=== PATIENT | female | born 1960 | race Caucasian/White ===

== ENCOUNTER 2017-08-12 21:38 | Inpatient (IN) | payer OTHER ==
[2017-08-12 22:28] LABS: CHLORIDE,CL 86 mmol/L (101-111); SODIUM,NA 121 mmol/L (135-145)
[2017-08-12] MEDS ORDERED: Sodium Chloride 0.9% 10 ML Syringe FLUSH PRN (23:07)
[2017-08-12] MEDS ORDERED: Ondansetron 4 MG Tab.DIS PO PRN (23:07)
[2017-08-12] MEDS ORDERED: Zolpidem 5 MG Tab PO PRN (23:07)
[2017-08-12] MEDS ORDERED: Ondansetron 4 MG/2 ML SDV IVPUSH PRN (23:07)
--- NOTE | 2017-08-12 23:07 | EDM.PDOC ---
ED HPI GENERAL MEDICAL PROBLEM - General Chief Complaint: Neurological Problem Stated Complaint: [id number] CONFUSION Time Seen by Provider: 08/12/17 21:50 Source of Information: Reports: Patient, Family History Limitations: Reports: Altered Mental Status - History of Present Illness INITIAL COMMENTS - FREE TEXT/NARRATIVE: ED with spouse, reporting increase in confusion in patient. Patient has hx brain tumor with surgery 20 years ago, since has had memory problems. Past few days has been worse and difference in mood. Stated that usually when she gets this way it is due to her Sodium being low. Patient seen a few weeks ago in [place] and were told sodium was on the low end of normal. Also reported they noticed some growth in original tumor area but any surgery would be more of a risk than benefit. Also stable aneurysm. Spouse has not noted weakness. - Related Data Allergies Allergy/AdvReac Type Severity Reaction Status Date / Time codeine Allergy Stomach Verified 08/12/17 23:19 Upset Iodinated Contrast- Oral and Allergy Anaphylactic Verified 08/12/17 23:19 IV Dye Shock Home Meds: Home Meds Levothyroxine Sodium [Synthroid] 75 mcg PO DAILY 08/12/15 [History] PARoxetine HCl [Paroxetine HCl] 20 mg PO DAILY 08/12/15 [History] levETIRAcetam [Levetiracetam] 750 mg PO BID 08/12/15 [History] Past Medical History Other HEENT History: history of brain tumor, eye surgieris Cardiovascular History: Reports: None Respiratory History: Reports: None Gastrointestinal History: Reports: None Genitourinary History: Reports: None Other OB/BYN History: Musculoskeletal History: Reports: None Other Neuro History: brain tumor followed by radiation Psychiatric History: Reports: None Endocrine/Metabolic History: Reports: Hypothyroidism Hematologic History: Reports: None Immunologic History: Reports: None Oncologic (Cancer) History: Reports: None Dermatologic History: Reports: None - Infectious Disease History Infectious Disease History: Reports: Chicken Pox - Past Surgical History Head Surgeries/Procedures: Reports: None Other HEENT Surgeries/Procedures: eye surguries as a child and tube in ears when young (had a brain tumor) Social & Family History - Family History Family Medical History: Noncontributory - Tobacco Use Smoking Status *Q: Never Smoker Second Hand Smoke Exposure: No - Caffeine Use Caffeine Use: Reports: None - Recreational Drug Use Recreational Drug Use: No - Living Situation & Occupation Living situation: Reports: , with Family Occupation: Disabled ED ROS GENERAL - Review of Systems Review Of Systems: ROS reveals no pertinent complaints other than HPI. (Patient does not offer any additional information.) ED EXAM, GENERAL - Physical Exam Exam: See Below Exam Limited By: No Limitations General Appearance: Alert, No Apparent Distress, Anxious (easily agitated with stimuli and questioning) Eye Exam: Bilateral Eye: EOMI (eye movement symetrical does not track with gaze yellow discharge left ey inner canthus) Ears: Normal External Exam, Normal TMs Nose: Normal Inspection Throat/Mouth: Normal Inspection, Perioral Cyanosis Head: Atraumatic Neck: Normal Inspection Respiratory/Chest: No Respiratory Distress, Lungs Clear, Normal Breath Sounds Cardiovascular: Normal Peripheral Pulses, Regular Rate, Rhythm GI/Abdominal: Normal Bowel Sounds, Soft Extremities: Normal Inspection Neurological: Alert, Slow to Respond, Memory Loss Remote Events, Memory Loss Recent Events, Other (one word responses most commonly "no" to any questions, ocassionally asking appropriate questions GCS 14). No: Normal Cognition Skin Exam: Warm, Dry, Intact Course - Vital Signs Last Recorded V/S: Last Vital Signs Temp 96.4 F 08/12/17 23:07 Pulse 63 08/12/17 23:07 Resp 16 08/12/17 23:07 BP 124/73 08/12/17 23:07 Pulse Ox 100 08/12/17 23:07 - Orders/Labs/Meds Orders: Active Orders 24 hr Category Date Time Status BASIC METABOLIC PANEL,BMP [CHEM] AM Lab 08/13/17 05:15 Ordered CBC WITH AUTO DIFF [HEME] AM Lab 08/13/17 05:15 Ordered CULTURE BLOOD [BC] Stat Lab 08/12/17 21:55 Results DRUG SCREEN URINE BIORAD [URCHEM] Stat Lab 08/12/17 21:47 Ordered OSMOLALITY - SERUM [REF] Routine Lab 08/12/17 23:06 Ordered OSMOLALITY - URINE Routine Lab 08/12/17 23:06 Ordered SODIUM,URINE RANDOM [URCHEM] Routine Lab 08/12/17 23:06 Ordered UA W/MICROSCOPIC [URIN] Stat Lab 08/12/17 21:47 Ordered Levothyroxine Med 08/13/17 09:00 Active 75 mcg PO DAILY Sodium Chloride Med 08/12/17 23:30 Active 1 gm PO TID Blood Culture x2 Reflex Set [OM.PC] Stat Oth 08/12/17 21:47 Ordered Medication Orders Acetaminophen (Tylenol) 650 mg PO Q4H PRN PRN Reason: Pain (Mild 1-3)/fever Aspirin (Aspirin) 81 mg PO WITHBREAKFAST [facility] Heparin Sodium (Porcine) (Heparin Sodium) 5,000 units SUBCUT Q8HR [facility] Sodium Chloride (Normal Saline) 1,000 mls @ 50 mls/hr IV ASDIRECTED [facility] Last Admin: 08/12/17 23:49 Dose: 50 mls/hr Levetiracetam (Keppra) 750 mg PO BID [facility] Last Admin: 08/12/17 23:52 Dose: 750 mg Levothyroxine Sodium (Levothyroxine) 75 mcg PO DAILY [facility] Mirtazapine (Remeron) 15 mg PO BEDTIME [facility] Last Admin: 08/12/17 23:51 Dose: 15 mg Ondansetron HCl (Zofran Odt) 4 mg PO Q6H PRN PRN Reason: nausea, able to take PO Sodium Chloride (Sodium Chloride) 1 gm PO TID [facility] Last Admin: 08/12/17 23:51 Dose: 1 gm Sodium Chloride (Saline Flush) 10 ml FLUSH ASDIRECTED PRN PRN Reason: Keep Vein Open Zolpidem Tartrate (Ambien) 5 mg PO BEDTIME PRN PRN Reason: Sleep Last Admin: 08/12/17 23:51 Dose: 5 mg Labs: Laboratory Tests 08/12/17 08/12/17 08/12/17 Range/Units 21:55 21:55 21:55 WBC Cancelled RBC Cancelled Hgb Cancelled Hct Cancelled MCV Cancelled MCH Cancelled MCHC Cancelled Plt Count Cancelled Neut % (Auto) (42.2-75.2) % Lymph % (Auto) (20.5-50.1) % [place] % (Auto) (2-8) % Eos % (Auto) (1.0-3.0) % Baso % (Auto) (0.0-1.0) % PT 9.1 (9.0-12.0) SEC INR 0.9 (0.9-1.2) Sodium 121 L D (135-145) mmol/L Potassium 4.8 (3.6-5.0) mmol/L Chloride 86 L D (101-111) mmol/L Carbon Dioxide 27.0 (21.0-31.0) mmol/L Anion Gap 12.8 BUN 12 (7-18) mg/dL Creatinine 0.5 L (0.6-1.3) mg/dL Est Cr Clr Drug Dosing 105.16 mL/min Estimated GFR (MDRD) > 60 BUN/Creatinine Ratio 24.00 Glucose 80 (74-105) mg/dL Calcium 9.2 (8.4-10.2) mg/dl Magnesium 1.8 (1.8-2.5) mg/dL Total Bilirubin 0.8 (0.2-1.0) mg/dL AST 59 H (10-42) IU/L ALT 53 (10-60) IU/L Alkaline Phosphatase 117 (42-121) IU/L Total Protein 7.6 (6.7-8.2) g/dl Albumin 4.0 (3.2-5.5) g/dl Globulin 3.6 Albumin/Globulin Ratio 1.11 08/12/17 Range/Units 21:55 WBC 8.0 RBC 4.35 Hgb 13.1 Hct 35.9 L MCV 82.5 MCH 30.1 MCHC 36.5 H Plt Count 165 Neut % (Auto) 69.6 (42.2-75.2) % Lymph % (Auto) 22.9 (20.5-50.1) % [place] % (Auto) 6.3 (2-8) % Eos % (Auto) 1.1 (1.0-3.0) % Baso % (Auto) 0.1 (0.0-1.0) % PT (9.0-12.0) SEC INR (0.9-1.2) Sodium (135-145) mmol/L Potassium (3.6-5.0) mmol/L Chloride (101-111) mmol/L Carbon Dioxide (21.0-31.0) mmol/L Anion Gap BUN (7-18) mg/dL Creatinine (0.6-1.3) mg/dL Est Cr Clr Drug Dosing mL/min Estimated GFR (MDRD) BUN/Creatinine Ratio Glucose (74-105) mg/dL Calcium (8.4-10.2) mg/dl Magnesium (1.8-2.5) mg/dL Total Bilirubin (0.2-1.0) mg/dL AST (10-42) IU/L ALT (10-60) IU/L Alkaline Phosphatase (42-121) IU/L Total Protein (6.7-8.2) g/dl Albumin (3.2-5.5) g/dl Globulin Albumin/Globulin Ratio Meds: Medications Generic Name Dose Route Start Last Admin Trade Name Erasmoq PRN Reason Stop Dose Admin Acetaminophen 650 mg 08/12/17 23:07 Tylenol PO Q4H PRN Pain (Mild 1-3)/fever Aspirin 81 mg 08/13/17 08:00 Aspirin PO WITHBREAKFAST [facility] Heparin Sodium (Porcine) 5,000 units 08/13/17 06:00 Heparin Sodium SUBCUT Q8HR [facility] Sodium Chloride 1,000 mls @ 50 mls/hr 08/12/17 23:15 08/12/17 23:49 Normal Saline IV 50 mls/hr ASDIRECTED [facility] Administration Levetiracetam 750 mg 08/12/17 23:30 08/12/17 23:52 Keppra PO 750 mg BID [facility] Administration Levothyroxine Sodium 75 mcg 08/13/17 09:00 Levothyroxine PO DAILY [facility] Mirtazapine 15 mg 08/12/17 23:30 08/12/17 23:51 Remeron PO 15 mg BEDTIME [facility] Administration Ondansetron HCl 4 mg 08/12/17 23:07 Zofran Odt PO Q6H PRN nausea, able to take PO Sodium Chloride 1 gm 08/12/17 23:30 08/12/17 23:51 Sodium Chloride PO 1 gm TID [facility] Administration Sodium Chloride 10 ml 08/12/17 23:07 Saline Flush FLUSH ASDIRECTED PRN Keep Vein Open Zolpidem Tartrate 5 mg 08/12/17 23:07 08/12/17 23:51 Ambien PO 5 mg BEDTIME PRN Administration Sleep Discontinued Medications Generic Name Dose Route Start Last Admin Trade Name Freq PRN Reason Stop Dose Admin Non-Formulary Medication 750 mg 08/13/17 09:00 Levetiracetam [Levetiracetam] PO DAILY [facility] Ondansetron HCl 4 mg 08/12/17 23:07 Zofran IVPUSH Q6H PRN Nausea/Vomiting - Radiology Interpretation Free Text/Narrative:: No acute change on Head CT comparing to March 2017 - Re-Assessments/Exams Free Text/Narrative Re-Assessment/Exam: 08/12/17 23:12 Dr. Watts accepting of patient for further evaluation and management of Hyponatremia with altered mental status. Departure - Departure Time of Disposition: 22:00 Disposition: Admitted As Inpatient 68 Condition: Fair Clinical Impression: Hyponatremia, History of brain tumor, History of seizure disorder, Confusion Mental status alteration Qualifiers: Altered mental status type: unspecified Qualified Code(s): R41.82 - Altered mental status, unspecified - Discharge Information - My Orders Last 24 Hours: My Active Orders 08/12/17 21:47 DRUG SCREEN URINE BIORAD [URCHEM] Stat UA W/MICROSCOPIC [URIN] Stat Blood Culture x2 Reflex Set [OM.PC] Stat 08/12/17 21:55 CULTURE BLOOD [BC] Stat - Assessment/Plan Last 24 Hours: My Active Orders 08/12/17 21:47 DRUG SCREEN URINE BIORAD [URCHEM] Stat UA W/MICROSCOPIC [URIN] Stat Blood Culture x2 Reflex Set [OM.PC] Stat 08/12/17 21:55 CULTURE BLOOD [BC] Stat
--- NOTE | 2017-08-12 23:29 | PCM.HP ---
H&P History of Present Illness - General Date of Service: 08/12/17 Admit Problem/Dx: Admission Diagnosis/Problem Admission Diagnosis/Problem Hyponatremia Source of Information: Patient, Family (), Provider (er) - History of Present Illness Initial Comments - Free Text/Narative: The patient is a 57-year-old lady with a history of meningioma. The patient had prior surgical resection about 20 years ago. The patient has been following up with the [facility] and was just recently there. There wasn't no new concern or treatment plan. The patient has a history of episodic hyponatremia. She has had seizure and has been on Keppra. The patient's noted that the patient has been increasing confusion in the past few days. Confusion has been on and off. Worsening. No associated nausea or vomiting or headache. Has lower oral intake. Consider the usual longer sentences the patient is only answering short yes or no answers. There was no fall, no head trauma. - Related Data Allergies/Adverse Reactions: Allergies Allergy/AdvReac Type Severity Reaction Status Date / Time codeine Allergy Stomach Verified 08/12/17 23:19 Upset Iodinated Contrast- Oral and Allergy Anaphylactic Verified 08/12/17 23:19 IV Dye Shock Home Medications: Home Meds Levothyroxine Sodium [Synthroid] 75 mcg PO DAILY 08/12/15 [History] PARoxetine HCl [Paroxetine HCl] 20 mg PO DAILY 08/12/15 [History] levETIRAcetam [Levetiracetam] 750 mg PO DAILY 08/12/15 [History] Past Medical History Other HEENT History: history of brain tumor, eye surgieris Cardiovascular History: Reports: None Respiratory History: Reports: None Gastrointestinal History: Reports: None Genitourinary History: Reports: None Other OB/BYN History: Musculoskeletal History: Reports: None Other Neuro History: brain tumor followed by radiation Psychiatric History: Reports: None Endocrine/Metabolic History: Reports: Hypothyroidism Hematologic History: Reports: None Immunologic History: Reports: None Oncologic (Cancer) History: Reports: None Dermatologic History: Reports: None - Infectious Disease History Infectious Disease History: Reports: Chicken Pox - Past Surgical History Head Surgeries/Procedures: Reports: None Other HEENT Surgeries/Procedures: eye surguries as a child and tube in ears when young (had a brain tumor) Social & Family History - Family History Family Medical History: Noncontributory - Tobacco Use Smoking Status *Q: Never Smoker Second Hand Smoke Exposure: No - Caffeine Use Caffeine Use: Reports: None - Recreational Drug Use Recreational Drug Use: No - Living Situation & Occupation Living situation: Reports: , with Family Occupation: Disabled H&P Review of Systems - Review of Systems: Review Of Systems: See Below General: Denies: Fever, Chills HEENT: Reports: No Symptoms Pulmonary: Denies: Shortness of Breath Cardiovascular: Denies: Chest Pain Gastrointestinal: Denies: Abdominal Pain Genitourinary: Denies: Dysuria Musculoskeletal: Denies: Neck Pain, Muscle Stiffness Psychiatric: Reports: Confusion Neurological: Reports: Confusion. Denies: Dizziness, Headache Exam - Exam Exam: See Below - Vital Signs Vital Signs: Last Vital Signs Temp 36.8 C 08/12/17 21:41 Pulse 70 08/12/17 21:41 Resp 18 08/12/17 21:41 BP 146/97 H 08/12/17 21:41 Pulse Ox 100 08/12/17 21:41 Weight: 73.028 kg - Exam General: Alert, Other (Has limited insight. Answering "no" or "I don't know"). No: Oriented HEENT: Conjunctiva Clear, EOMI Neck: Supple Cardiovascular: Regular Rate, Regular Rhythm GI/Abdominal Exam: Normal Bowel Sounds, Soft, Non-Tender Extremities: No Pedal Edema Skin: Warm, Dry Neuro Extensive - Mental Status: Alert. No: Oriented x3, Normal Mood/Affect, Memory Intact Neuro Extensive - Motor, Sensory, Reflexes: Expressive Aphasia. No: Hemeplagia (R), Hemeplagia (L), Abnormal Motor, Tremor Psychiatric: Alert. No: Anxious, Agitated - Patient Data Lab Results Last 24 hrs: CT of the brain showed multiple areas of meningioma with Mild, stable, surrounding edema. Result Diagrams: 08/12/17 21:55 08/12/17 21:55 *Q Meaningful Use (ADM) - VTE *Q VTE Criteria *Q: - Stroke *Q Stroke Criteria *Q: - AMI *Q AMI Criteria *Q: - Problem List (1) History of brain tumor SNOMED Code(s): 868085218, 434424922 ICD Code: Z87.898 - PERSONAL HISTORY OF OTHER SPECIFIED CONDITIONS Status: Acute Current Visit: Yes (2) History of seizure disorder SNOMED Code(s): 784692885 ICD Code: Z86.69 - PERSONAL HISTORY OF DIS OF THE NERVOUS SYS AND SENSE ORGANS Status: Acute Current Visit: Yes (3) Hyponatremia SNOMED Code(s): 04631148 ICD Code: E87.1 - HYPO-OSMOLALITY AND HYPONATREMIA Status: Acute Current Visit: Yes Problem List Initiated/Reviewed/Updated: Yes Orders Last 24hrs: Active Orders 24 hr Category Date Time Status Patient Status [ADT] Routine ADT 08/12/17 23:07 Ordered Antiembolic Devices [RC] PER UNIT ROUTINE Care 08/12/17 23:09 Ordered Oxygen Therapy [RC] PRN Care 08/12/17 23:07 Ordered Peripheral IV Care [RC] . DIRECTED Care 08/12/17 23:09 Ordered Up With Assistance [RC] ASDIRECTED Care 08/12/17 23:07 Ordered VTE/DVT Education [RC] PER UNIT ROUTINE Care 08/12/17 23:07 Ordered Vital Signs [RC] Q4H Care 08/12/17 23:07 Ordered Fluid Restriction [DIET] Diet 08/13/17 Breakfast Ordered Regular Diet [DIET] Diet 08/12/17 Breakfast Active BASIC METABOLIC PANEL,BMP [CHEM] AM Lab 08/13/17 05:15 Ordered CBC WITH AUTO DIFF [HEME] AM Lab 08/13/17 05:15 Ordered OSMOLALITY - SERUM [REF] Routine Lab 08/12/17 23:06 Ordered OSMOLALITY - URINE Routine Lab 08/12/17 23:06 Ordered SODIUM,URINE RANDOM [URCHEM] Routine Lab 08/12/17 23:06 Ordered Acetaminophen [Tylenol] Med 08/12/17 23:07 Ordered 650 mg PO Q4H PRN Aspirin Med 08/13/17 08:00 Ordered 81 mg PO WITHBREAKFAST Heparin Sodium Med 08/13/17 06:00 Ordered 5,000 units SUBCUT Q8HR Levothyroxine Med 08/13/17 09:00 Ordered 75 mcg PO DAILY Mirtazapine [Remeron] Med 08/12/17 23:30 Ordered 15 mg PO BEDTIME Ondansetron [Zofran ODT] Med 08/12/17 23:07 Ordered 4 mg PO Q6H PRN Sodium Chloride Med 08/12/17 23:30 Ordered 1 gm PO TID Sodium Chloride 0.9% [Normal Saline] 1,000 ml Med 08/12/17 23:15 Ordered IV ASDIRECTED Sodium Chloride 0.9% [Saline Flush] Med 08/12/17 23:07 Ordered 10 ml FLUSH ASDIRECTED PRN Zolpidem [Ambien] Med 08/12/17 23:07 Ordered 5 mg PO BEDTIME PRN levETIRAcetam [Levetiracetam] Med 08/12/17 23:30 Ordered 750 mg PO BID Antiembolic Hose [OM.PC] Per Unit Routine Oth 08/12/17 23:08 Ordered Peripheral IV Insertion Adult [OM.PC] Routine Oth 08/12/17 23:07 Ordered Resuscitation Status Routine Resus Stat 08/12/17 23:07 Ordered Medication Orders Acetaminophen (Tylenol) 650 mg PO Q4H PRN PRN Reason: Pain (Mild 1-3)/fever Aspirin (Aspirin) 81 mg PO WITHBREAKFAST [facility] Heparin Sodium (Porcine) (Heparin Sodium) 5,000 units SUBCUT Q8HR [facility] Sodium Chloride (Normal Saline) 1,000 mls @ 50 mls/hr IV ASDIRECTED [facility] Levothyroxine Sodium (Levothyroxine) 75 mcg PO DAILY [facility] Mirtazapine (Remeron) 15 mg PO BEDTIME [facility] Non-Formulary Medication (Levetiracetam [Levetiracetam]) 750 mg PO BID [facility] Ondansetron HCl (Zofran Odt) 4 mg PO Q6H PRN PRN Reason: nausea, able to take PO Sodium Chloride (Sodium Chloride) 1 gm PO TID [facility] Sodium Chloride (Saline Flush) 10 ml FLUSH ASDIRECTED PRN PRN Reason: Keep Vein Open Zolpidem Tartrate (Ambien) 5 mg PO BEDTIME PRN PRN Reason: Sleep Assessment/Plan Comment:: The patient is a 57-year-old with a history of meningioma. History of seizure disorder. 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 hold the Paxil Start sodium tablets around with fluid restriction Medications gentle normal saline for the next few hours. Recheck electrolytes in the morning #2 history of seizure disorder Continue Keppra #3 hypothyroidism Treat with Synthroid #4 DVT prophylaxis will be with Subcutaneous heparin
[2017-08-12] MEDS: Sodium Chloride 0.9% 1,000 ML IV SCH (23:49)
[2017-08-12] MEDS: Sodium Chloride 1 GM Tab PO SCH (23:51)
[2017-08-12] MEDS: Mirtazapine 15 MG Tab PO SCH (23:51)
[2017-08-12] MEDS: levETIRAcetam 500 MG Tab PO SCH (23:52)
[2017-08-13] MEDS: Heparin Sodium 5,000 Units/ML Vial SUBCUT SCH ×3 (05:46→21:01)
[2017-08-13] MEDS: Acetaminophen 325 MG Tab PO PRN (07:10)
[2017-08-13 07:13] LABS: CHLORIDE,CL 90 mmol/L (101-111); SODIUM,NA 124 mmol/L (135-145)
[2017-08-13] MEDS: Levothyroxine 75 MCG Tab PO SCH (08:05)
[2017-08-13] MEDS: levETIRAcetam 500 MG Tab PO SCH ×2 (08:05→20:56)
[2017-08-13] MEDS: Aspirin 81 MG Tab.Chew PO SCH (08:05)
[2017-08-13] MEDS: Sodium Chloride 1 GM Tab PO SCH ×3 (08:06→20:55)
[2017-08-13] MEDS ORDERED: Non-Formulary Medication 1 Each (Levetiracetam [Levetiracetam] 750 MG) PO SCH (09:00)
[2017-08-13] MEDS: Sodium Chloride 0.9% 1,000 ML IV SCH (19:24)
[2017-08-13] MEDS: Mirtazapine 15 MG Tab PO SCH (20:55)
--- NOTE | 2017-08-13 23:48 | PCM.PN ---
- General Info Date of Service: 08/13/17 Admission Dx/Problem (Free Text): Patient 57-year-old female admitted because of hyponatremia. Initially he presented with confusion. Sodium this morning is 124 and patient was noted to be back to her baseline. She was also started on cautious normal saline at 50 ml /hr, fluid restriction and salt tablets 3 times a day. Patient denies any physical complaints on encounter. Denies any rate, dizziness, loss of appetite and nausea nor vomiting. Functional Status: Reports: Tolerating Diet - Patient Data Vitals - Most Recent: Last Vital Signs Temp 97.5 F 08/13/17 19:50 Pulse 84 08/13/17 19:50 Resp 20 08/13/17 19:50 BP 118/77 08/13/17 19:50 Pulse Ox 100 08/13/17 23:07 Weight - Most Recent: 161 lb I&O - Last 24 Hours: Intake & Output 08/13/17 08/13/17 08/14/17 14:59 22:59 06:59 Intake Total 755 930 200 Output Total 1000 1000 900 Balance -245 -70 -700 Lab Results Last 24 Hours: Laboratory Results - last 24 hr 08/13/17 08/13/17 08/13/17 Range/Units 05:55 05:55 05:56 WBC (5.0-10.0) 10^3/uL RBC (4.2-5.4) 10^6/uL Hgb (12.0-16.0) g/dL Hct (37.0-47.0) % MCV (80-100) fL MCH (27.0-34.0) pg MCHC (33.0-35.0) g/dL Plt Count (150-450) 10^3/uL Neut % (Auto) (42.2-75.2) % Lymph % (Auto) (20.5-50.1) % [place] % (Auto) (2-8) % Eos % (Auto) (1.0-3.0) % Baso % (Auto) (0.0-1.0) % Sodium (135-145) mmol/L Potassium (3.6-5.0) mmol/L Chloride (101-111) mmol/L Carbon Dioxide (21.0-31.0) mmol/L Anion Gap BUN (7-18) mg/dL Creatinine (0.6-1.3) mg/dL Est Cr Clr Drug Dosing mL/min Estimated GFR (MDRD) Glucose (74-105) mg/dL Calcium (8.4-10.2) mg/dl Urine Color Yellow (YELLOW) Urine Appearance Clear (CLEAR) Urine pH 7.0 (5.0-9.0) Ur Specific [place] 1.015 (1.005-1.030) Urine Protein Negative (NEGATIVE) Urine Glucose (UA) Negative (NEGATIVE) Urine Ketones 15 H (NEGATIVE) Urine Occult Blood Negative (NEGATIVE) Urine Nitrite Negative (NEGATIVE) Urine Bilirubin Negative (NEGATIVE) Urine Urobilinogen 0.2 (0.2-1.0) mg/dL Ur Leukocyte Esterase Moderate H (NEGATIVE) Urine RBC 0-5 /HPF Urine WBC 20-30 H (0-5/HPF) /HPF Ur Epithelial Cells Moderate H /HPF Urine Bacteria Few (0-FEW/HPF) /HPF Ur Random Sodium 81 (40-220) mmol/L Urine Opiates Screen Negative (NEGATIVE) Ur Oxycodone Screen Negative (NEGATIVE) Urine Methadone Screen Negative (NEGATIVE) Ur Barbiturates Screen Negative (NEGATIVE) U Tricyclic Antidepress Negative (NEGATIVE) Ur Phencyclidine Scrn Negative (NEGATIVE) Ur Amphetamine Screen Negative (NEGATIVE) U Methamphetamines Scrn Negative (NEGATIVE) Urine MDMA Screen Negative (NEGATIVE) U Benzodiazepines Scrn Negative (NEGATIVE) Urine Cocaine Screen Negative (NEGATIVE) U Marijuana (THC) Screen Negative (NEGATIVE) 08/13/17 08/13/17 08/13/17 Range/Units 06:42 06:42 12:13 WBC 6.0 (5.0-10.0) 10^3/uL RBC 4.19 L (4.2-5.4) 10^6/uL Hgb 12.5 (12.0-16.0) g/dL Hct 35.0 L (37.0-47.0) % MCV 83.5 (80-100) fL MCH 29.8 (27.0-34.0) pg MCHC 35.7 H (33.0-35.0) g/dL Plt Count 163 (150-450) 10^3/uL Neut % (Auto) 64.7 (42.2-75.2) % Lymph % (Auto) 26.6 (20.5-50.1) % [place] % (Auto) 7.0 (2-8) % Eos % (Auto) 1.5 (1.0-3.0) % Baso % (Auto) 0.2 (0.0-1.0) % Sodium 124 L 122 L (135-145) mmol/L Potassium 4.0 (3.6-5.0) mmol/L Chloride 90 L (101-111) mmol/L Carbon Dioxide 27.0 (21.0-31.0) mmol/L Anion Gap 11.0 BUN 10 (7-18) mg/dL Creatinine 0.5 L (0.6-1.3) mg/dL Est Cr Clr Drug Dosing 105.16 mL/min Estimated GFR (MDRD) > 60 Glucose 78 (74-105) mg/dL Calcium 8.8 (8.4-10.2) mg/dl Urine Color (YELLOW) Urine Appearance (CLEAR) Urine pH (5.0-9.0) Ur Specific [place] (1.005-1.030) Urine Protein (NEGATIVE) Urine Glucose (UA) (NEGATIVE) Urine Ketones (NEGATIVE) Urine Occult Blood (NEGATIVE) Urine Nitrite (NEGATIVE) Urine Bilirubin (NEGATIVE) Urine Urobilinogen (0.2-1.0) mg/dL Ur Leukocyte Esterase (NEGATIVE) Urine RBC /HPF Urine WBC (0-5/HPF) /HPF Ur Epithelial Cells /HPF Urine Bacteria (0-FEW/HPF) /HPF Ur Random Sodium (40-220) mmol/L Urine Opiates Screen (NEGATIVE) Ur Oxycodone Screen (NEGATIVE) Urine Methadone Screen (NEGATIVE) Ur Barbiturates Screen (NEGATIVE) U Tricyclic Antidepress (NEGATIVE) Ur Phencyclidine Scrn (NEGATIVE) Ur Amphetamine Screen (NEGATIVE) U Methamphetamines Scrn (NEGATIVE) Urine MDMA Screen (NEGATIVE) U Benzodiazepines Scrn (NEGATIVE) Urine Cocaine Screen (NEGATIVE) U Marijuana (THC) Screen (NEGATIVE) 08/13/17 Range/Units 18:09 WBC (5.0-10.0) 10^3/uL RBC (4.2-5.4) 10^6/uL Hgb (12.0-16.0) g/dL Hct (37.0-47.0) % MCV (80-100) fL MCH (27.0-34.0) pg MCHC (33.0-35.0) g/dL Plt Count (150-450) 10^3/uL Neut % (Auto) (42.2-75.2) % Lymph % (Auto) (20.5-50.1) % [place] % (Auto) (2-8) % Eos % (Auto) (1.0-3.0) % Baso % (Auto) (0.0-1.0) % Sodium 126 L (135-145) mmol/L Potassium (3.6-5.0) mmol/L Chloride (101-111) mmol/L Carbon Dioxide (21.0-31.0) mmol/L Anion Gap BUN (7-18) mg/dL Creatinine (0.6-1.3) mg/dL Est Cr Clr Drug Dosing mL/min Estimated GFR (MDRD) Glucose (74-105) mg/dL Calcium (8.4-10.2) mg/dl Urine Color (YELLOW) Urine Appearance (CLEAR) Urine pH (5.0-9.0) Ur Specific [place] (1.005-1.030) Urine Protein (NEGATIVE) Urine Glucose (UA) (NEGATIVE) Urine Ketones (NEGATIVE) Urine Occult Blood (NEGATIVE) Urine Nitrite (NEGATIVE) Urine Bilirubin (NEGATIVE) Urine Urobilinogen (0.2-1.0) mg/dL Ur Leukocyte Esterase (NEGATIVE) Urine RBC /HPF Urine WBC (0-5/HPF) /HPF Ur Epithelial Cells /HPF Urine Bacteria (0-FEW/HPF) /HPF Ur Random Sodium (40-220) mmol/L Urine Opiates Screen (NEGATIVE) Ur Oxycodone Screen (NEGATIVE) Urine Methadone Screen (NEGATIVE) Ur Barbiturates Screen (NEGATIVE) U Tricyclic Antidepress (NEGATIVE) Ur Phencyclidine Scrn (NEGATIVE) Ur Amphetamine Screen (NEGATIVE) U Methamphetamines Scrn (NEGATIVE) Urine MDMA Screen (NEGATIVE) U Benzodiazepines Scrn (NEGATIVE) Urine Cocaine Screen (NEGATIVE) U Marijuana (THC) Screen (NEGATIVE) Med Orders - Current: Current Medications Acetaminophen (Tylenol) 650 mg PO Q4H PRN PRN Reason: Pain (Mild 1-3)/fever Last Admin: 08/13/17 07:10 Dose: 650 mg Aspirin (Aspirin) 81 mg PO WITHBREAKFAST [place] Last Admin: 08/13/17 08:05 Dose: 81 mg Heparin Sodium (Porcine) (Heparin Sodium) 5,000 units SUBCUT Q8HR [facility] Last Admin: 08/13/17 21:01 Dose: 5,000 units Sodium Chloride (Normal Saline) 1,000 mls @ 50 mls/hr IV ASDIRECTED [facility] Last Admin: 08/13/17 19:24 Dose: 50 mls/hr Levetiracetam (Keppra) 750 mg PO BID [facility] Last Admin: 08/13/17 20:56 Dose: 750 mg Levothyroxine Sodium (Levothyroxine) 75 mcg PO DAILY [facility] Last Admin: 08/13/17 08:05 Dose: 75 mcg Mirtazapine (Remeron) 15 mg PO BEDTIME [facility] Last Admin: 08/13/17 20:55 Dose: 15 mg Ondansetron HCl (Zofran Odt) 4 mg PO Q6H PRN PRN Reason: nausea, able to take PO Sodium Chloride (Sodium Chloride) 1 gm PO TID [facility] Last Admin: 08/13/17 20:55 Dose: 1 gm Sodium Chloride (Saline Flush) 10 ml FLUSH ASDIRECTED PRN PRN Reason: Keep Vein Open Zolpidem Tartrate (Ambien) 5 mg PO BEDTIME PRN PRN Reason: Sleep Last Admin: 08/12/17 23:51 Dose: 5 mg Discontinued Medications Non-Formulary Medication (Levetiracetam [Levetiracetam]) 750 mg PO DAILY [facility] Ondansetron HCl (Zofran) 4 mg IVPUSH Q6H PRN PRN Reason: Nausea/Vomiting - Problem List Review Problem List Initiated/Reviewed/Updated: Yes - My Orders Last 24 Hours: My Active Orders 08/13/17 05:55 CULTURE URINE [RM] Routine - Plan Plan:: Hyponatremia - Likely from the underlying brain tumor/meningioma - Continue with cautious hydration, salt restriction and salt tablets 3 times a day - Monitor sodium periodically to ensure appropriate increase in the sodium - Await urine and plasma osmolality as well as urine sodium History of seizures - Continue Keppra - Fall precautions DVT prophylaxis
[2017-08-14] MEDS: Acetaminophen 325 MG Tab PO PRN (05:09)
[2017-08-14] MEDS: Heparin Sodium 5,000 Units/ML Vial SUBCUT SCH (06:18)
[2017-08-14 06:51] LABS: CHLORIDE,CL 97 mmol/L (101-111); SODIUM,NA 129 mmol/L (135-145)
[2017-08-14 08:20] VITALS: BP 114/61
[2017-08-14] MEDS: levETIRAcetam 500 MG Tab PO SCH (09:32)
[2017-08-14] MEDS: Aspirin 81 MG Tab.Chew PO SCH (09:32)
[2017-08-14] MEDS: Levothyroxine 75 MCG Tab PO SCH (09:32)
[2017-08-14] MEDS: Sodium Chloride 1 GM Tab PO SCH (09:32)
== END 2017-08-14 11:45 | disposition home or self-care (01) | DRG 645 ==
LOC: DL.ED 21:38 → DL.MS 23:00 → UNDOADMIN 23:00 → DL.MS 23:07
PROVIDERS: ADMIT Internal Medicine; ATTEND Internal Medicine
DX: E22.2 Syndrome of inappropriate secretion of antidiuretic hormone (principal); E03.9 Hypothyroidism, unspecified; G40.909 Epilepsy, unspecified, not intractable, without status epilepticus; R41.0 Disorientation, unspecified; Z85.841 Personal history of malignant neoplasm of brain; Z79.899 Other long term (current) drug therapy
CPT/HCPCS: 36415; 70450; 80048; 80053; 80305; 81001; 83735; 83930; 83935; 84295; 84300; 85025; 85610; 87040; 87086; 99285; A9270-GY; J1644; J7030